=== PATIENT | female | born 1950 | race Caucasian/White ===

== ENCOUNTER 2018-06-18 10:40 | Observation (INO) | payer MEDICARE, BC ==
--- NOTE | 2018-06-18 14:24 | CRLCT ---
HISTORY: Fall with head strike to right posterior head. TECHNIQUE: Noncontrast head CT. COMPARISON: No comparison studies are available. FINDINGS: Axial noncontrast images through the brain parenchyma demonstrates no acute intracranial hemorrhage or mass. No midline shift. No abnormal extra-axial air or fluid collections. Paranasal sinuses mastoid air cells skull and scalp appear unremarkable. IMPRESSION: 1. No acute intracranial hemorrhage or mass. Please note that all CT scans at this facility use dose modulation, iterative reconstruction, and/or weight-based dosing when appropriate to reduce radiation dose to as low as reasonably achievable. Dictated by Kathleen Mcleod MD @ Jun 18 2018 2:20PM Signed by Dr. Kathleen Mcleod @ Jun 18 2018 2:21PM
--- NOTE | 2018-06-18 16:09 | PCM.HP ---
H&P History of Present Illness - General Date of Service: 06/18/18 Admit Problem/Dx: Admission Diagnosis/Problem Admission Diagnosis/Problem Syncope Source of Information: Patient, Old Records, Provider, RN Notes Reviewed History Limitations: Reports: No Limitations - History of Present Illness Initial Comments - Free Text/Narative: Ms. Jordan is a 67-year-old woman who is admitted through the emergency department observation status for further evaluation and management of episodes of lightheadedness and syncope. She has a known and long-standing history of atrial fibrillation. She is been managed with oral digoxin and metoprolol for the past 10 years. She is also treated with warfarin for oral anticoagulation. In the past she has had episodes of lightheadedness and weakness related to atrial fibrillation and rapid ventricular response. She had been doing well until about 2 weeks ago when she began to experience episodes of weakness and lightheadedness, with no vertigo. These episodes could occur several times a day and last short period of time, 10-15 seconds. Over the last 2 days episodes have become more intense and during that period of time she is experienced 5-6 episodes. Symptoms have been worse with increased weakness and lightheadedness, lasting approximately 1 minute. During these episodes she often will experience some diaphoresis but denies any nausea or significant shortness of breath. She also denies any awareness of rapid heart rate or slow heart rate. When she woke up this morning she was feeling fairly well, but after short period of time began to experience recurrent symptoms of profound weakness and lightheadedness that occurred on and off over a period of 2 hours. The last 15 minutes of that time frame symptoms became very severe with almost immediately recurring lightheadedness that was again very severe and left her very weak. This culminated in an episode of syncope, where she lost consciousness for several seconds. She also reports an episode of chest pressure yesterday morning and again this morning when she was feeling lightheaded. Chest pressure was fairly intense but lasted only about a minute each time. She denies any recent change in exercise tolerance or chest pressure with exertion. Overall over the last 2 weeks she is felt more weak and fatigued. She did undergo coronary angiogram about 10 years ago and was told that her coronary arteries were fairly clear at that time and she did not require intervention. Calculated HEART SCORE is 4. - Related Data Allergies/Adverse Reactions: Allergies Allergy/AdvReac Type Severity Reaction Status Date / Time No Known Allergies Allergy Verified 06/18/18 11:02 Home Medications: Home Meds Digoxin [Digox] 125 mcg PO DAILY 11/19/13 [History] FLUoxetine HCl [Fluoxetine] 10 mg PO BID 11/19/13 [History] Lovastatin 40 mg PO BEDTIME 11/19/13 [History] Metoprolol Tartrate 50 mg PO BID 11/19/13 [History] Warfarin Sodium [Jantoven] 7.5 mg PO ASDIRECTED 11/19/13 [History] Warfarin Sodium [Jantoven] 10 mg PO ASDIRECTED 11/19/13 [History] Aspirin [Low Dose Aspirin EC] 1 tab PO DAILY 07/09/15 [History] Cholecalciferol (Vitamin D3) [Vitamin D-3] 1,000 cap PO BID 07/09/15 [History] Past Medical History Cardiovascular History: Reports: Afib, Hypertension - Past Surgical History HEENT Surgical History: Reports: Tonsillectomy GI Surgical History: Reports: Appendectomy Social & Family History - Tobacco Use Smoking Status *Q: Never Smoker H&P Review of Systems - Review of Systems: Review Of Systems: See Below General: Reports: Weakness. Denies: Fever, Chills HEENT: Reports: No Symptoms Pulmonary: Reports: No Symptoms Cardiovascular: Reports: Chest Pain, Lightheadedness, Syncope. Denies: Palpitations, Dyspnea on Exertion, Orthopnea, PND, Edema Gastrointestinal: Reports: No Symptoms Genitourinary: Reports: No Symptoms Musculoskeletal: Reports: No Symptoms Skin: Reports: No Symptoms Psychiatric: Reports: No Symptoms Neurological: Reports: No Symptoms Hematologic/Lymphatic: Reports: No Symptoms Immunologic: Reports: No Symptoms Exam - Exam Exam: See Below - Vital Signs Vital Signs: Last Vital Signs Temp 97.0 F 06/18/18 15:01 Pulse 78 06/18/18 15:01 Resp 22 H 06/18/18 15:01 BP 123/60 06/18/18 15:01 Pulse Ox 96 06/18/18 15:01 Weight: 144 lb - Exam Quality Assessment: DVT Prophylaxis General: Alert, Oriented, Cooperative, Mild Distress HEENT: Conjunctiva Clear, Hearing Intact, Mucosa Moist & [place], Normal Nasal Septum, Posterior Pharynx Clear, Pupils Equal Neck: Supple, Trachea Midline, +2 Carotid Pulse wo Bruit Lungs: Clear to Auscultation, Normal Respiratory Effort Cardiovascular: Regular Rate, Normal S1, Normal S2, Irregular Rhythm. No: Systolic Murmur, Diastolic Murmur GI/Abdominal Exam: Soft, Non-Tender, No Organomegaly, No Distention Back Exam: Normal Inspection, Full Range of Motion Extremities: Non-Tender, No Pedal Edema Skin: Warm, Dry, Intact Neurological: Cranial Nerves Intact, Strength Equal Bilateral, Normal Speech, Normal Tone, Sensation Intact. No: Focal Deficit Neuro Extensive - Mental Status: Alert, Oriented x3, Normal Mood/Affect, Normal Cognition, Memory Intact - Patient Data Lab Results Last 24 hrs: Laboratory Results - last 24 hr 06/18/18 06/18/18 06/18/18 Range/Units 12:16 12:16 12:16 WBC 10.3 (4.5-11.0) K/uL RBC 4.46 (3.30-5.50) M/uL Hgb 13.4 (12.0-15.0) g/dL Hct 41.5 (36.0-48.0) % MCV 93 (80-98) fL MCH 30 (27-31) pg MCHC 32 (32-36) % Plt Count 312 (150-400) K/uL Neut % (Auto) 68 H (36-66) % Lymph % (Auto) 16 L (24-44) % [place] % (Auto) 15 H (2-6) % Eos % (Auto) 1 L (2-4) % Baso % (Auto) 1 (0-1) % PT 26.0 H (9.5-12.0) sec INR 2.49 H (0.80-1.20) Sodium 135 L (140-148) mmol/L Potassium 4.1 (3.6-5.2) mmol/L Chloride 101 (100-108) mmol/L Carbon Dioxide 27 (21-32) mmol/L Anion Gap 11.1 (5.0-14.0) mmol/L BUN 14 (7-18) mg/dL Creatinine 0.9 (0.6-1.0) mg/dL Est Cr Clr Drug Dosing 50.94 mL/min Estimated GFR (MDRD) > 60 (>60) Glucose 103 (74-106) mg/dL Calcium 9.4 (8.5-10.1) mg/dL Troponin I < 0.017 (0.000-0.056) ng/mL Result Diagrams: 06/18/18 12:16 06/18/18 12:16 *Q Meaningful Use (ADM) - VTE *Q VTE Pharmacological Contraindications *Q: High INR Value - VTE Risk Assess *Q Each Risk Factor Represents 1 Point: None Total Score 1 Point Risk Factors: 0 Each Risk Factor Represents 2 Points: Age 60 - 74 Years Total Score 2 Point Risk Factors: 2 Each Risk Factor Represents 3 Points: None Total Score 3 Point Risk Factors: 0 Each Risk Factor Represents 5 Points: None Total Score 5 Point Risk Factors: 0 Venous Thromboembolism Risk Factor Score *Q: 2 Problem List Initiated/Reviewed/Updated: Yes Orders Last 24hrs: Active Orders 24 hr Category Date Time Status Patient Status Manage Transfer [TRANSFER] Routine ADT 06/18/18 15:52 Active EKG Documentation Completion [RC] ASDIRECTED Care 06/18/18 12:06 Active DIGOXIN [CHEM] Stat Lab 06/18/18 16:01 Ordered TROPONIN I [CHEM] Stat Lab 06/18/18 16:01 Ordered TSH ULTRASENSITIVE [CHEM] Stat Lab 06/18/18 16:01 Ordered Resuscitation Status Routine Resus Stat 06/18/18 15:55 Ordered EKG 12 Lead [EK] Routine Ther 06/18/18 12:05 Ordered Assessment/Plan Comment:: ASSESSMENT AND PLAN SYNCOPAL EPISODE-associated with progressive symptoms of weakness and lightheadedness occurring over the past 2 weeks. Specific etiology not apparent based on evaluation thus far. Suspect cardiac dysrhythmia, most likely bradycardia, less likely tachycardia related to her atrial fibrillation. No evidence of seizure activity or vertigo. -Cardiac monitoring -Orthostatic vital signs -Digoxin level and TSH -Consider further outpatient evaluation including echocardiogram and rhythm monitoring with event recorder CHEST PAIN-2 brief episodes one of which occurred yesterday morning the second this morning. Initial troponin level is within normal range and EKG shows no evidence of ischemia or infarct. Calculated HEART SCORE is 4. -Serial troponin levels -Outpatient Dwight scan Cardiolite study ATRIAL FIBRILLATION-found to be in atrial fibrillation on monitoring in the emergency department as well as on EKG, rate controlled. She is on long-term oral anticoagulation with warfarin, INR is within therapeutic range. MAINTENANCE ISSUES -DVT prophylaxis; current therapy with warfarin should provide adequate DVT prophylaxis -GI prophylaxis; not indicated -Mendez catheter; not indicated -Nutrition; regular diet -Nicotiine dependence; not required CODE STATUS-FULL CODE ADMISSION STATUS-this patient will be admitted to observation status, expect no more than a one night hospital stay for evaluation and management of problems as outlined above. DISPOSITION-anticipate discharge to home after the hospital stay. PRIMARY CARE PROVIDER-Marga Boss
[2018-06-18] MEDS ORDERED: Ondansetron 4 MG/2 ML SDV IV PRN (16:38)
[2018-06-18] MEDS ORDERED: Sodium Chloride 0.9% 1,000 ML IV SCH (16:38)
[2018-06-18] MEDS ORDERED: WARFARIN SODIUM 7.5 MG PO SCH (16:38)
[2018-06-18] MEDS ORDERED: Acetaminophen 325 MG Tab PO PRN (16:38)
[2018-06-18] MEDS ORDERED: Polyethylene Glycol 3350 Powder 17 GM Packet PO PRN (16:38)
[2018-06-18] MEDS ORDERED: Sodium Chloride 0.9% 10 ML Syringe FLUSH PRN (16:38)
[2018-06-18] MEDS ORDERED: Non-Formulary Medication 1 Each (Warfarin Sodium [Jantoven] 10 MG) PO SCH (16:38)
[2018-06-18] MEDS ORDERED: Metoprolol Tartrate 50 MG Tab PO SCH (21:00)
[2018-06-18] MEDS ORDERED: Warfarin 2.5 MG Tab PO SCH (21:00)
[2018-06-18] MEDS ORDERED: LOVASTATIN 40 MG PO SCH (21:00)
[2018-06-18] MEDS ORDERED: Warfarin 5 MG **PTOM PO SCH (21:00)
[2018-06-18] MEDS: METOPROLOL TARTRATE 100 MG PO SCH (21:18)
[2018-06-19] MEDS: METOPROLOL TARTRATE 100 MG PO SCH (08:15)
[2018-06-19] MEDS ORDERED: Aspirin 81 MG Tab.EC **PTOM PO SCH (09:00)
[2018-06-19] MEDS ORDERED: METOPROLOL TARTRATE 100 MG PO SCH (09:00)
[2018-06-19] MEDS ORDERED: DIGOXIN 125 MCG PO SCH (09:00)
[2018-06-19] MEDS ORDERED: FLUOXETINE 10 MG PO SCH (09:00)
[2018-06-19 11:21] VITALS: BP 119/47
--- NOTE | 2018-06-19 11:33 | PCM.DCSUM1 ---
Discharge Summary - Hospital Course Brief History: Ms. Jordan is a 67-year-old woman who was admitted to observation status through the emergency department for further monitoring and evaluation of a syncopal episode. - Discharge Data Discharge Date: 06/19/18 Discharge Disposition: Home, Self-Care 01 Condition: Fair - Discharge Diagnosis/Problem(s) (1) Syncope SNOMED Code(s): 621531177 ICD Code: R55 - SYNCOPE AND COLLAPSE Status: Acute Current Visit: Yes (2) Atrial fibrillation with controlled ventricular response SNOMED Code(s): 739190269 ICD Code: I48.91 - UNSPECIFIED ATRIAL FIBRILLATION Status: Acute Current Visit: Yes - Patient Summary/Data Hospital Course: Ms. Jordan is a 67-year-old woman who was admitted through the emergency department to observation status for further evaluation and management of episodes of lightheadedness and syncope. She has a known and long-standing history of paroxysmal atrial fibrillation. She has been managed with oral digoxin and metoprolol for the past 10 years. She is also treated with warfarin for oral anticoagulation. In the past she has had episodes of lightheadedness and weakness related to atrial fibrillation and rapid ventricular response. She had been doing well until about 2 weeks ago when she began to experience episodes of weakness and lightheadedness, with no vertigo. These episodes could occur several times a day and last short period of time, 10-15 seconds. Over the last 2 days episodes have become more intense and during that period of time she is experienced 5-6 episodes. Symptoms have been worse with increased weakness and lightheadedness, lasting approximately 1 minute. During these episodes she often will experience some diaphoresis but denies any nausea or significant shortness of breath. She also denies any awareness of rapid heart rate or slow heart rate. When she woke up this morning she was feeling fairly well, but after short period of time began to experience recurrent symptoms of profound weakness and lightheadedness that occurred on and off over a period of 2 hours. The last 15 minutes of that time frame symptoms became very severe with almost immediately recurring lightheadedness that was again very severe and left her very weak. This culminated in an episode of syncope, where she lost consciousness for several seconds. She also reports an episode of chest pressure yesterday morning and again this morning when she was feeling lightheaded. Chest pressure was fairly intense but lasted only about a minute each time. She denies any recent change in exercise tolerance or chest pressure with exertion. Overall over the last 2 weeks she is felt more weak and fatigued. She did undergo coronary angiogram about 10 years ago and was told that her coronary arteries were fairly clear at that time and she did not require intervention. Calculated HEART SCORE is 4. She was admitted to observation status and placed on cardiac monitoring, admission she was noted to be in atrial fibrillation but during the commercial pilot hours converted to sinus rhythm. No other significant dysrhythmias were identified during her hospital stay. Orthostatic vital signs were obtained and initially did show a significant drop but by the morning of discharge these had normalized with no significant evidence of orthostasis. She experienced no recurrent symptoms of lightheadedness or weakness that she been experiencing at home. Serial troponin levels were obtained because of her symptoms of chest pressure which occurred during episodes of lightheadedness. Troponin levels were found to be all within normal range. She will be discharged home I did recommend that she increase the sodium in her diet see if this helps episodes of lightheadedness. Echocardiogram will be obtained to reassess left ventricular function and valvular status. Andrea scan Cardiolite study will be obtained to evaluate for coronary artery disease because of her symptoms of chest pressure. Follow-up appointment has already been scheduled for her with her primary care provider for this next week. Consider further outpatient evaluation including cardiac event recorder and possible referral back to EP cardiology. - Patient Instructions Diet: Usual Diet as Tolerated Activity: As Tolerated Other/Special Instructions: Echocardiogram June 20, indication syncope. Patient already has a follow-up appointment scheduled with her primary care provider Marga Boss for June 24. Please schedule Andrea scan Cardiolite study this next week. - Discharge Plan *PRESCRIPTION DRUG MONITORING PROGRAM REVIEWED*: Not Applicable *COPY OF PRESCRIPTION DRUG MONITORING REPORT IN PATIENT SOURAV: Not Applicable Home Medications: Home Meds Digoxin [Digox] 125 mcg PO DAILY 11/19/13 [History] FLUoxetine HCl [Fluoxetine] 10 mg PO BID 11/19/13 [History] Lovastatin 40 mg PO BEDTIME 11/19/13 [History] Metoprolol Tartrate 50 mg PO BID 11/19/13 [History] Warfarin Sodium [Jantoven] 7.5 mg PO ASDIRECTED 11/19/13 [History] Aspirin [Low Dose Aspirin EC] 1 tab PO DAILY 04/12/16 [History] Cholecalciferol (Vitamin D3) [Vitamin D3] 1,000 cap PO BID 07/09/15 [History] Referrals: Marga Boss CNM [Primary Care Provider] - - Discharge Summary/Plan Comment DC Time >30 min.: No - Patient Data Vitals - Most Recent: Last Vital Signs Temp 95.8 F 06/19/18 11:20 Pulse 63 06/19/18 11:20 Resp 16 06/19/18 11:20 BP 119/47 L 06/19/18 11:20 Pulse Ox 97 06/19/18 11:20 Orthostatic Blood Pressure [ 123/53 Supine] Orthostatic Blood Pressure [ 128/56 Standing] Orthostatic Blood Pressure [ 117/63 Sitting] Weight - Most Recent: 144 lb 3 oz I&O - Last 24 hours: Intake & Output 06/18/18 06/19/18 06/19/18 22:59 06:59 14:59 Intake Total 480 633 Output Total 600 Balance 480 33 Lab Results - Last 24 hrs: Laboratory Results - last 24 hr 06/18/18 06/18/18 06/18/18 Range/Units 12:16 12:16 12:16 WBC 10.3 (4.5-11.0) K/uL RBC 4.46 (3.30-5.50) M/uL Hgb 13.4 (12.0-15.0) g/dL Hct 41.5 (36.0-48.0) % MCV 93 (80-98) fL MCH 30 (27-31) pg MCHC 32 (32-36) % Plt Count 312 (150-400) K/uL Neut % (Auto) 68 H (36-66) % Lymph % (Auto) 16 L (24-44) % [place] % (Auto) 15 H (2-6) % Eos % (Auto) 1 L (2-4) % Baso % (Auto) 1 (0-1) % PT 26.0 H (9.5-12.0) sec INR 2.49 H (0.80-1.20) Sodium 135 L (140-148) mmol/L Potassium 4.1 (3.6-5.2) mmol/L Chloride 101 (100-108) mmol/L Carbon Dioxide 27 (21-32) mmol/L Anion Gap 11.1 (5.0-14.0) mmol/L BUN 14 (7-18) mg/dL Creatinine 0.9 (0.6-1.0) mg/dL Est Cr Clr Drug Dosing 50.94 mL/min Estimated GFR (MDRD) > 60 (>60) Glucose 103 (74-106) mg/dL Calcium 9.4 (8.5-10.1) mg/dL Troponin I < 0.017 (0.000-0.056) ng/mL TSH, Ultra Sensitive (0.358-3.740) uIU/mL Digoxin (0.90-2.00) ng/mL 06/18/18 06/18/18 Range/Units 16:06 22:08 WBC (4.5-11.0) K/uL RBC (3.30-5.50) M/uL Hgb (12.0-15.0) g/dL Hct (36.0-48.0) % MCV (80-98) fL MCH (27-31) pg MCHC (32-36) % Plt Count (150-400) K/uL Neut % (Auto) (36-66) % Lymph % (Auto) (24-44) % [place] % (Auto) (2-6) % Eos % (Auto) (2-4) % Baso % (Auto) (0-1) % PT (9.5-12.0) sec INR (0.80-1.20) Sodium (140-148) mmol/L Potassium (3.6-5.2) mmol/L Chloride (100-108) mmol/L Carbon Dioxide (21-32) mmol/L Anion Gap (5.0-14.0) mmol/L BUN (7-18) mg/dL Creatinine (0.6-1.0) mg/dL Est Cr Clr Drug Dosing mL/min Estimated GFR (MDRD) (>60) Glucose (74-106) mg/dL Calcium (8.5-10.1) mg/dL Troponin I 0.017 < 0.017 (0.000-0.056) ng/mL TSH, Ultra Sensitive 0.955 (0.358-3.740) uIU/mL Digoxin 0.72 L (0.90-2.00) ng/mL Med Orders - Current: Current Medications Acetaminophen (Tylenol) 650 mg PO Q4H PRN PRN Reason: Pain (Mild 1-3)/fever Aspirin (Halfprin) 81 mg PO DAILY [facility] Last Admin: 06/19/18 08:53 Dose: 81 mg Digoxin (Lanoxin) 125 mcg PO DAILY [facility] Last Admin: 06/19/18 09:05 Dose: 125 mcg Fluoxetine HCl (Prozac) 10 mg PO BID [facility] Last Admin: 06/19/18 08:53 Dose: 10 mg Sodium Chloride (Normal Saline) 1,000 mls @ 75 mls/hr IV ASDIRECTED [facility] Last Admin: 06/18/18 20:34 Dose: 75 mls/hr Ondansetron HCl (Zofran) 4 mg IV Q4H PRN PRN Reason: Nausea/Vomiting Lovastatin 40mg (Ptom) 0 each PO BEDTIME [facility] Metoprolol Tartrate (100mg Ptom) 0 each PO BID [facility] Last Admin: 06/19/18 08:53 Dose: 0.5 each Polyethylene Glycol (Miralax) 17 gm PO DAILY PRN PRN Reason: Constipation Sodium Chloride (Saline Flush) 10 ml FLUSH ASDIRECTED PRN PRN Reason: Keep Vein Open Warfarin Sodium (Coumadin) 7.5 mg PO DAILY@1300 [facility] Last Admin: 06/18/18 21:20 Dose: 7.5 mg Discontinued Medications Lovastatin (Mevacor) 40 mg PO BEDTIME [facility] Metoprolol Tartrate (Lopressor) 50 mg PO BID [facility] Non-Formulary Medication (Warfarin Sodium [Jantoven]) 7.5 mg PO ASDIRECTED [facility] Non-Formulary Medication (Warfarin Sodium [Jantoven]) 10 mg PO ASDIRECTED [facility] Lovastatin 40mg Tab* (*Own Med) 1 each PO BEDTIME [facility] Last Admin: 06/18/18 21:18 Dose: 1 each Metoprolol Tartrate (100mg TabOwn Med) 0.5 each PO BID [facility] Last Admin: 06/19/18 08:15 Dose: 0.5 each Warfarin Sodium (Coumadin) 7.5 mg PO DAILY@1300 [facility] Last Admin: 06/18/18 21:08 Dose: Not Given - Exam General: Reports: Alert, Oriented, Cooperative, No Acute Distress Lungs: Reports: Clear to Auscultation, Normal Respiratory Effort Cardiovascular: Reports: Regular Rate, Regular Rhythm, No Murmurs GI/Abdominal Exam: Soft, Non-Tender, No Organomegaly, No Distention *Q Meaningful Use (DIS) - VTE *Q VTE Pharmacological Contraindications *Q: High INR Value
[2018-06-19] MEDS ORDERED: LOVASTATIN 40 MG PO SCH (21:00)
== END 2018-06-19 11:55 | disposition home or self-care (01) ==
LOC: JP.ED 10:40 → JP.ICU 15:52 → JP.MS 19:58
PROVIDERS: ADMIT Hospitalist; ATTEND Hospitalist
DX: R55 Syncope and collapse (principal); I48.0 Paroxysmal atrial fibrillation; I10 Essential (primary) hypertension; Z79.01 Long term (current) use of anticoagulants; Z79.82 Long term (current) use of aspirin; Z79.899 Other long term (current) drug therapy
CPT/HCPCS: 36415; 70450; 80048; 80162; 84443; 84484; 85025; 85610; 93005; 93010; 96360; 96361; 99217; 99220; 99285; A9270; G0378; J7030

== ENCOUNTER → 2018-06-29 | Outpatient (CLI) | payer MEDICARE, BC ==
[~2018-06-29] MED LIST: Aminophylline 250 MG/10 ML SDV IVPUSH ONE
[2018-06-29 10:04] VITALS: BP 166/74; PULSE 51
--- NOTE | 2018-06-30 12:51 | STRESS ---
DATE OF SERVICE: 06/30/2018 PROCEDURE: Lexiscan Cardiolite. TECHNIQUE: Ms. Jordan was infused with usual dose of Lexiscan followed by the Cardiolite injection given per protocol with Lexiscan infusion. She did experience symptoms of shortness of breath as well as chest pain. The pain and shortness of breath resolved spontaneously and did not require reversal medication. Resting ECG: Sinus bradycardia, rate of 48, normal axis and intervals, otherwise normal- appearing EKG. No significant ST-segment changes or T-wave abnormalities were seen with Lexiscan infusion or during the post infusion. No significant dysrhythmias were noted during the monitoring. She did experience symptoms as reported above. IMPRESSION: Unremarkable Lexiscan portion of Lexiscan Cardiolite study. Vadim Dixon MD /[id number]
--- NOTE | 2018-07-04 09:56 | NM ---
Myocardial Perf Spect Multi INDICATION: CHEST PAIN COMPARISON: 2015 TECHNIQUE: Nuclear medicine myocardial perfusion scan was performed after IV administration of 8.1 millicuries uptake technetium 99m Myoview at rest and 27.0 millicuries of technetium 99m at stress (Lexiscan). FINDINGS: Myocardial perfusion: There is a small perfusion defect in the inferior lateral wall towards the apex. This is larger on rest than at stress and is likely artifactual Wall motion: Normal wall motion. LVEF stress: 73 % LVEF rest: 74 % Other findings: None. IMPRESSION: Small perfusion defect in the inferior lateral wall towards the apex is likely artifactual. No other evidence of reversible ischemia
== END ==
LOC: JP.ACU 08:11
PROVIDERS: ATTEND Hospitalist
DX: R07.9 Chest pain, unspecified (principal)
CPT/HCPCS: 78452; 93017; A9500; J2785; 93018

== ENCOUNTER 2018-12-05 06:27 | Day surgery (SDC) | payer MEDICARE, BC ==
[2018-12-05] MEDS ORDERED: Bacitracin Oint 1 GM U/D Packet ONE (06:32)
[2018-12-05] MEDS ORDERED: Bupivacaine 0.5% 50 ML MDV ONE (06:33)
[2018-12-05] MEDS ORDERED: Lidocaine 1% with EPINEPHrine 1:100,000 50 ML MDV ONE (06:33)
[2018-12-05] MEDS ORDERED: ceFAZolin 1 GM in Premix Bag 1 BAG IV ONE (07:00)
[2018-12-05] MEDS ORDERED: Dextrose 5%-Lactated Ringers 1,000 ML IV SCH (07:00)
[2018-12-05] MEDS ORDERED: Propofol 200 MG/20 ML SDV ONE (07:13)
[2018-12-05] MEDS ORDERED: Midazolam 1 MG/ML 2 ML SDV ONE (07:13)
[2018-12-05] MEDS ORDERED: fentaNYL 100 MCG/2 ML SDV ONE (07:13)
[2018-12-05 09:32] VITALS: BP 129/64; PULSE 51
--- NOTE | 2018-12-12 08:12 | OR ---
DATE OF PROCEDURE: 12/05/2018 SURGEON: Gelacio Krishnan MD PREOPERATIVE DIAGNOSIS: Recurrent subcutaneous skin lesion, right neck. POSTOPERATIVE DIAGNOSIS: Recurrent subcutaneous skin lesion, right neck. OPERATIVE PROCEDURE: Excision of recurrent subcutaneous skin lesion to right neck with layered closure ([id number]). ANESTHESIA: Local plus IV sedation. INDICATION FOR PROCEDURE: A 68-year-old female, who is status post excision of a subcutaneous lesion on her right neck in July. This has now recurred in one end of the incision. Plan is to proceed with reexcision of the area. This will include the entire incision, in the event we are dealing with something neoplastic. The original incision was slightly off line with the skin creases, but the re-excision site should be able to be designed to incorporate those quite satisfactorily into the elliptical skin incision. The potential risks including bleeding, infection, possible recurrence once again, possible need for additional treatment, depending on pathologic findings, were gone over, as well as possible cosmetic deformity, and the patient wishes to proceed. DETAILS OF PROCEDURE: The patient was taken to the operating room and placed in a supine position. After IV sedation was administered, the patient's head was turned somewhat toward the left. The area had been marked preoperatively and was then remarked such that the ellipse would likely fall within one of the skin creases in the lateral mid neck. That area was then prepped and draped and anesthetized with 1% lidocaine mixed with Marcaine. An elliptical incision was made. By definition, the margins included the length of the incision plus a small additional margin, which was 1.5 cm. The lesion was removed intact, and the deeper soft tissues were approximated with some 5-0 Vicryl stitch and the skin with 5-0 Prolene stitch. The incision length ended up being 3.3 cm. Some bacitracin was applied. The patient was taken to the recovery room in satisfactory condition. There were no evident complications. Gelacio Krishnan MD /[id number]
== END 2018-12-05 09:47 | disposition home or self-care (01) ==
LOC: JP.SDS 06:27
PROVIDERS: ATTEND Surgery
DX: L90.5 Scar conditions and fibrosis of skin (principal); I48.91 Unspecified atrial fibrillation; E78.00 Pure hypercholesterolemia, unspecified
CPT/HCPCS: 11422; 12042; 88305; J0690; J2250; J2704; J3010; J3490; J7042

== ENCOUNTER 2020-05-10 08:07 | Day surgery (SDC) | payer MEDICARE, BC ==
[~2020-05-10 08:07] MED LIST changes: -Aminophylline 250 MG/10 ML SDV IVPUSH ONE; +Midazolam 1 MG/ML 2 ML SDV ONE; +Propofol 200 MG/20 ML SDV ONE; +fentaNYL 100 MCG/2 ML SDV ONE
[2020-05-10] MEDS ORDERED: Metoprolol Tartrate 50 MG Tab PO ONE (08:26)
[2020-05-10] MEDS ORDERED: Dextrose 5%-Lactated Ringers 1,000 ML IV SCH (08:30)
[2020-05-10] MEDS ORDERED: Metoprolol Tartrate 25 MG Tab PO ONE (08:40)
[2020-05-10 10:44] VITALS: BP 114/55; PULSE 51
--- NOTE | 2020-05-19 15:22 | OR ---
DATE OF PROCEDURE: 05/10/2020 SURGEON: Gelacio Krishnan MD PREOPERATIVE DIAGNOSIS: Intermittent bright red rectal bleeding. POSTOPERATIVE DIAGNOSIS: Intermittent bright red rectal bleeding associated with excoriated mixed hemorrhoids. OPERATIVE PROCEDURE: Flexible colonoscopy. ANESTHESIA: IV sedation. INDICATIONS FOR PROCEDURE: A 69-year-old female presenting for colonoscopy to investigate some evidence of bright red rectal bleeding. The plan is to proceed with colonoscopy with biopsies and/or polypectomy as indicated. Potential risks including bleeding and perforation were discussed and the patient wishes to proceed. DETAILS OF PROCEDURE: The patient was taken to the operating room and placed in a left lateral decubitus position. IV sedation was administered after which the initial digital rectal exam was performed and it was unremarkable. Colonoscope was then passed into the rectum with retroflexion revealing some diffusely inflamed and somewhat excoriated mixed hemorrhoids. None of these stood out as likely a good candidate for hemorrhoid banding and no active bleeding was presently seen. The scope was eventually passed into the cecum. The prep was quite good with only small amount of liquid stool present. Apart from the excoriated hemorrhoids, there were no areas of diverticulosis, no areas of colitis, no polyps or other signs of neoplasia and no blood or bleeding seen. The scope was then withdrawn, the above findings reconfirmed, and the procedure then concluded. Should the patient develop increasing problems with persistent rectal bleeding, surgical referral could be obtained at that time. Gelacio Krishnan MD /[id number]
== END 2020-05-10 11:30 | disposition home or self-care (01) ==
LOC: JP.SDS 08:07
PROVIDERS: ATTEND Surgery
DX: K64.8 Other hemorrhoids (principal); I10 Essential (primary) hypertension; I25.10 Atherosclerotic heart disease of native coronary artery without angina pectoris; E78.5 Hyperlipidemia, unspecified; I48.91 Unspecified atrial fibrillation
CPT/HCPCS: 45378; A9270; J2250; J2704; J3010; J7121

== ENCOUNTER 2021-07-11 15:10 | Emergency (ER) | payer MEDICARE, BC ==
[2021-07-11 15:51] VITALS: PULSE 65
[2021-07-11 15:59] VITALS: BP 135/79
== END 2021-07-11 16:53 | disposition home or self-care (01) ==
LOC: JP.ED 15:10
DX: R55 Syncope and collapse (principal); E78.00 Pure hypercholesterolemia, unspecified; I10 Essential (primary) hypertension; I48.91 Unspecified atrial fibrillation; Z79.01 Long term (current) use of anticoagulants; Z79.899 Other long term (current) drug therapy
CPT/HCPCS: 36415; 80048; 85027; 99283; 99284

== ENCOUNTER 2023-03-12 07:57 | Day surgery (SDC) | payer MEDICARE, BC ==
[2023-03-12] MEDS ORDERED: fentaNYL 100 MCG/2 ML SDV ONE (08:05)
[2023-03-12] MEDS ORDERED: Propofol 200 MG/20 ML SDV ONE (08:05)
[2023-03-12] MEDS ORDERED: Lactated Ringers 1,000 ML IV SCH (08:30)
[2023-03-12] MEDS ORDERED: Ondansetron 4 MG/2 ML SDV IVPUSH ONE (10:51)
[2023-03-12 12:23] VITALS: BP 110/38; PULSE 48
== END 2023-03-12 12:30 | disposition home or self-care (01) ==
LOC: JP.SDS 07:57
PROVIDERS: ATTEND Student in an Organized Health Care Education/Training Program
DX: K22.2 Esophageal obstruction (principal); K29.70 Gastritis, unspecified, without bleeding; I10 Essential (primary) hypertension; I25.10 Atherosclerotic heart disease of native coronary artery without angina pectoris; Z88.8 Allergy status to other drugs, medicaments and biological substances
CPT/HCPCS: 43239; 88305; 93005; J2405; J2704; J3010; J7120

== ENCOUNTER 2025-01-29 06:32 | Day surgery (SDC) | payer MEDICARE, BC ==
[2025-01-29 06:55] LABS: PLATELET COUNT,PLT 206.0 K/uL (130-375); RED BLOOD CELL COUNT 4.13 M/uL (3.77-5.24); WHITE BLOOD CELL COUNT,WBC 7.7 K/uL (3.2-11.0)
[2025-01-29 07:10] LABS: BLOOD UREA NITROGEN,BUN 17.0 mg/dL (7-18); CARBON DIOXIDE,CO2 32.0 mmol/L (21-32); CHLORIDE,CL 100.0 mmol/L (100-108); CREATININE 0.8 mg/dL (0.6-1.0); EST CRCL DRUG DOSING (CG) 42.97 mL/min; ESTIMATED GFR 76.0 mL/min (>60); GLUCOSE RANDOM 102.0 mg/dL (74-106); POTASSIUM,K 3.6 mmol/L (3.6-5.2); SODIUM,NA 140.0 mmol/L (140-148)
[2025-01-29 07:15] LABS: INR 0.9; PTT,PARTIAL THROMBOPLSTIN TIME 28.5 sec (21.8-27.3)
[2025-01-29] MEDS: Nozin Nasal Sanitizer NASBOTH ONE (07:22)
[2025-01-29] MEDS: Lactated Ringers 1,000 ML IV SCH (07:23)
[2025-01-29] MEDS ORDERED: fentaNYL 100 MCG/2 ML SDV ONE (07:29)
[2025-01-29] MEDS ORDERED: Propofol 200 MG/20 ML SDV ONE (07:29)
[2025-01-29] MEDS ORDERED: Midazolam 1 MG/ML 2 ML SDV ONE (07:30)
[2025-01-29] MEDS: Acetaminophen/HYDROcodone 325-5 MG Tab PO PRN (10:36)
[2025-01-29] MEDS: Ondansetron 4 MG/2 ML SDV IVPUSH ONE (10:44)
[2025-01-29 11:45] VITALS: BP 101/38; PULSE 48
== END 2025-01-29 11:51 | disposition home or self-care (01) ==
LOC: JP.SDS 06:32
PROVIDERS: ATTEND Specialist
DX: G56.02 Carpal tunnel syndrome, left upper limb (principal)
CPT/HCPCS: 36415; 80048; 85027; 85610; 85730; A9270; J0690; J2250; J2405; J2704; J3010; J7120; J0665